=== PATIENT | female | born 1955 ===

== ENCOUNTER 2016-11-19 16:22 | Emergency (ER) | payer MEDICAID ==
[2016-11-19 16:28] VITALS: TEMP 97.6; O2SAT 98
--- NOTE | 2016-11-19 17:55 | C.PDOC ---
History Of Present Illness A 61 year old female presents to the emergency room for the evaluation of a bilateral earache (right more than left) over the last few days. Patient described apin as throbbing, intermittent, self-limited.There are no exacerbating or relieving factors. Noted, some left neck pain and swollen gland. Otherwise, patient denies any recent illness, fever, chills, headaches, dizziness, vertigo, Tinnitus, ear discharge, hearing loss, drooling, dysphagia, dyspnea, cough, CP, SOB, abd. pain, N/V/D, denies change in her medication regimen, denies any other active complaints. Ambulate to ED for evaluation, not in any apparent distress. Time Seen by Provider: 11/19/16 17:22 Chief Complaint (Nursing): ENT Problem History Per: Patient History/Exam Limitations: None Onset/Duration Of Symptoms: Days (Few days) Quality (Ear): denies: Redness, Swelling, Discharge Symptoms Have Been: Continuous Severity: Mild Past Medical History Reviewed: Historical Data, Nursing Documentation, Vital Signs Vital Signs: Last Vital Signs Temp 97.6 F 11/19/16 16:26 Pulse 85 11/19/16 16:26 Resp 16 11/19/16 16:26 BP 121/79 11/19/16 16:26 Pulse Ox 98 11/19/16 17:58 - Medical History PMH: Arthritis, HTN, Osteoporosis Surgical History: Appendectomy - [facility] Procedures COLONOSCOPY (11/26/12) Family History: States: No Known Family Hx - Social History Hx Alcohol Use: No Hx Substance Use: No - Immunization History Hx Tetanus Toxoid Vaccination: No Hx Influenza Vaccination: No Hx Pneumococcal Vaccination: No Review Of Systems Except As Marked, All Systems Reviewed And Found Negative. Constitutional: Negative for: Fever, Chills ENT: Positive for: Ear Pain (Bilateral earaches (right more than left).). Negative for: Ear Discharge, Other (Tinnitus, ringing of the ears.) Cardiovascular: Negative for: Chest Pain Respiratory: Negative for: Shortness of Breath Gastrointestinal: Negative for: Nausea, Vomiting, Diarrhea Neurological: Negative for: Headache, Dizziness Physical Exam - Physical Exam Appears: Well, Non-toxic, No Acute Distress Skin: Normal Color, Warm, Dry, No Rash Head: Normacephalic Eye(s): bilateral: PERRL Ear(s): Left: TM Dull (with air-fluid level behind TM, ear canal normal exam, no discharge.), Right: Normal Nose: Normal, No Tenderness Oral Mucosa: Moist, No Drooling, No Trismus Tongue: Normal Appearing Lips: Normal Appearing Throat: Normal, No Erythema, No Exudate, No Drooling Neck: Normal ROM, No Midline Cervical Tenderness, No Paracervical Tenderness, Supple Lymphatic: Adenopathy (Left submandibular) Cardiovascular: Rhythm Regular Respiratory: Normal Breath Sounds, No Rales, No Rhonchi, No Wheezing Gastrointestinal/Abdominal: Soft, No Tenderness, No Guarding, No Rebound Extremity: Normal ROM, No Pedal Edema Neurological/Psych: Oriented x3, Normal Speech, Normal Cognition Gait: Steady ED Course And Treatment O2 Sat by Pulse Oximetry: 98 Pulse Ox Interpretation: Normal Progress Note: On re-eavluation, pt is afebrile, hemodynamicaly stable. Non- toxic. AMbulatory in ED with stable gait. PulseOx 98% RA. ENT: exam c/w Left seroius otitis media. Neck: (-) meningeal sign. Lungs: CTA B/L, BS equal B/L. Neurologicaly intact. Pt advised. ref. to F/u with PMD, ENT In 2-3 days for re-eavl. return if any new changes. Disposition Counseled Patient/Family Regarding: Diagnosis, Need For Followup, Rx Given - Disposition Referrals: Jack García MD [Staff Provider] - Alethea Perdue MD [Staff Provider] - Disposition: HOME/ ROUTINE Disposition Time: 18:02 Condition: STABLE Additional Instructions: Follow up with PMD, ENT In 2-3 days for re-evaluation. Return to ED if any worsening or new changes. Prescriptions: Amoxicillin/Clavulanate [Augmentin 875 MG-125 MG] 1 tab PO BID #14 tab traMADol [Ultram] 50 mg PO TID #7 tab Instructions: Serous Otitis Media (ED) Print Language: MACEDONIAN - Clinical Impression Clinical Impression: Otitis media - Scribe Statement The provider has reviewed the documentation as recorded by the Lainaibjuanjo Foote Provider Scribe Attestation: All medical record entries made by the Scribe were at my direction and personally dictated by me. I have reviewed the chart and agree that the record accurately reflects my personal performance of the history, physical exam, medical decision making, and the department course for this patient. I have also personally directed, reviewed, and agree with the discharge instructions and disposition.
[2016-11-19] MEDS ORDERED: Amoxicillin-Clav 875-125 mg Tab PO STA (18:01)
[2016-11-19 18:15] VITALS: BP 128/75; PULSE 72; RESP 18
== END 2016-11-19 18:05 | disposition home or self-care (01) ==
LOC: C.ER 16:22
DX: H65.92 Unspecified nonsuppurative otitis media, left ear (principal)